=== PATIENT | male | born 1965 | race African-American/Black ===

== ENCOUNTER 2016-10-05 01:58 | Inpatient (IN) | payer OTHER ==
[~2016-10-05] VITALS: Ht 175.3 cm; Wt 93.0 kg
--- NOTE | 2016-10-05 02:00 | NUR ---
TRIAGE: RENU ON POLICE PAPER FOR +SI THOUGH DENIES PLAN, REPORTS USING COCAINE 6-8 HOURS AGO. REPORTS TO RN "DAILY ETOH," REPORTS TO MD "ONLY SOMETIMES." PATIENT DENIES OTHER DRUG USE, -HI. PATIENT VERY CALM AND COOPERATIVE. SECURITY W/ PATIENT FOR WANDING.
--- NOTE | 2016-10-05 02:06 | ED PSYCHIATRIC COMPLAINT ---
History of Present Illness General Chief Complaint: Psychiatric Related Complaint Stated Complaint: BIBA +SI Source: patient, EMS Exam Limitations: no limitations Vital Signs & Intake/Output Vital Signs & Intake/Output Vital Signs Date Time Temp Pulse Resp B/P B/P Pulse O2 O2 Flow FiO2 Mean Ox Delivery Rate 10/10 2149 90 142/90 10/10 1956 96.9 90 142/90 10/10 1602 92 144/84 10/10 1556 92 144/84 10/10 1219 88 148/74 10/10 1214 88 148/74 10/10 0804 91 138/85 10/10 0752 96.7 91 18 138/85 10/10 0740 96.7 94 138/85 Triage Nurses Notes Reviewed? yes HPI: Patient presents with increasing depression with suicidal ideations. Patient states that he has a history of cocaine abuse and cannot take it anymore and just wants to . Patient has no specific plan. Patient reached out for help and 9 old contacted. Patient states that he usually goes to [place] when he feels like this however he feels like they just keep him for a day or 2 and then discharge him back to the street without helping him. Patient denies any homicidal ideations. There are no hallucinations. His last use of cocaine was earlier this evening. (BIGG RAMOS,LYNN Malone) Allergies Coded Allergies: No Known Allergies (10/06/16) Reconcile Medications No Known Home Medications (DEWEY RAMOS,HAILEE) Past History Travel History Traveled to [place] past 21 day No Medical History Any Pertinent Medical History? see below for history Psychiatric: depression Surgical History Surgical History: non-contributory Psychosocial History Tobacco Use: Current Daily Use Daily Tobacco Use Amount/Type: => 5 Cigarettes daily ETOH Use: occasional use Illicit Drug Use: cocaine Family History Hx Contributory? No (BIGG RAMOS,LYNN Malone) Review of Systems Review of Systems Constitutional: Reports: no symptoms. EENTM: Reports: no symptoms. Respiratory: Reports: no symptoms. Cardiovascular: Reports: no symptoms. GI: Reports: no symptoms. Genitourinary: Reports: no symptoms. Musculoskeletal: Reports: no symptoms. Skin: Reports: no symptoms. Neurological/Psychological: Reports: see HPI, depressed. Hematologic/Endocrine: Reports: no symptoms. Immunologic/Allergic: Reports: no symptoms. All Other Systems: Reviewed and Negative (BIGG RAMOS,LYNN Malone) Physical Exam Physical Exam General Appearance: well developed/nourished, mild distress Head: atraumatic Eyes: Bilateral: PERRL, EOMI. Ears, Nose, Throat: normal pharynx, normal ENT inspection, hearing grossly normal Neck: normal inspection, supple Respiratory: normal breath sounds, no respiratory distress, lungs clear Cardiovascular: regular rate/rhythm, normal peripheral pulses Gastrointestinal: soft, non-tender Extremities: normal range of motion Neurological/Psychiatric: no motor/sensory deficits, awake, alert, calm, oriented x 3 Appearance/Memory/Insight: appropriate appearance, appropriate insight Behavoir/Eye Contact/Speech: cooperative, normal speech, good eye contact Thoughts/Hallucinations: normal thought pattern, no apparent hallucination Skin: intact, normal color, warm/dry SAD PERSONS Done? CRISIS CONSULT OBNTAINED (BIGG RAMOS,LYNN Malone) Progress Differential Diagnosis: drug intoxication, drug overdose, drug withdrawal, electrolyte abnormality Plan of Care: Orders Procedure Date/time Status MISSING MEDICATION FORM 10/10 UNK Active Current Medications Sig/Benita Start time Last Medication Dose Stop Time Status Admin Prazosin HCl 5 MG 10/09 AC 10/10 (Minipress 5 MG) 2148 Gabapentin 400 MG 10/08 AC 10/10 (Neurontin) 214 [place] Carbonate 600 MG 10/08 AC 10/10 ([place] Carbonate) 194 [place] Carbonate 300 MG 10/08 0800 AC 10/10 (Dry Run Carbonate) 0804 Divalproex Sodium 1,000 MG 10/07 AC 10/10 (Depakote ER) 194 Olanzapine 2.5 MG Q4P PRN 10/07 1715 AC (Zyprexa 2.5MG) Gabapentin 300 MG Q4H PRN 10/07 1030 AC (Neurontin) Mirtazapine 7.5 MG AT BEDTIME 10/06 2199 AC 10/10 (Remeron) 214 Montelukast Sodium 10 MG AT BEDTIME 10/06 2199 AC 10/10 (Singulair) 214 Multivitamins 1 TAB DAILY 10/06 1829 AC 10/10 (Theragran Vitamins) 0804 Tramadol HCl 50 MG Q6P PRN 10/06 1215 AC 10/10 (Ultram) 215 Nicotine 14 MG DAILY 10/06 1202 AC 10/09 (Nicotine Cq) 0806 Budesonide/ 2 PUF BID 10/06 1000 AC 10/06 Formoterol Fumarate 2144 (SYMBICORT) Folic Acid 1 MG DAILY 10/06 1000 AC 10/10 (Folic Acid) 0804 Tamsulosin HCl 0.4 MG DAILY 10/06 1000 AC 10/10 (Flomax) 0804 Thiamine HCl 100 MG DAILY 10/06 1000 AC 10/10 (Vitamin B1) 0805 Albuterol Sulfate 2 PUF Q4P PRN 10/06 0230 AC (Ventolin) Docusate Sodium 100 MG DAILY NEEDED PRN 10/06 0230 AC 10/10 (Colace) 2149 Senna 187 MG AT BEDTIME NEED.. 10/06 0230 AC (Senokot) Lorazepam 1 MG Q1 NEEDED PRN 10/05 2300 AC (Ativan) Lorazepam 2 MG Q1 NEEDED PRN 10/05 2300 AC (Ativan) Acetaminophen 975 MG Q6P PRN 10/05 1800 AC 10/05 (Tylenol) 1828 7:11 AM PATIENT SIGNED OUT TO ME BY DR PRIDE PENDING CRISIS EVALUATION/DISPO. (HAILEE WILSON MD) Hand-Off Endorsed To: HAILEE WILSON MD Endorsed Time: 0700 Pending: consult (BIGG RAMOS,LYNN Malone) Hand-Off Endorsed To: MIKE RAYMUNDO MD Endorsed Time: 1100 Pending: consult (CRISIS) (HAILEE WILSON MD) Comments: 1400: Patient signed out to me by Dr. Wilson at shift change agent. Patient has been evaluated by the crisis condition and will be admitted to inpatient psychiatry. (MIKE RAYMUNDO MD) Departure Departure Disposition: STILL A PATIENT Condition: Stable Referrals: PATIENT HAS NO PRIMARY CARE DR (PCP/Family) Departure Forms: Customer Survey General Discharge Information (LYNN PRIDE MD) Departure Prescriptions: Current Visit Scripts No Known Home Medications (HAILEE WILSON MD) Departure Clinical Impression Primary Impression: Depression Qualifiers: Depression Type: unspecified Qualified Code: F32.9 - Major depressive disorder, single episode, unspecified Secondary Impressions: Cocaine abuse Psych Admission Note Psychiatric Admission: I have also reviewed all the pertinent lab results and diagnostic results. FRANK PANDA will be admitted to our inpatient Psychiatric unit for treatment and care. (MIKE RAYMUNDO MD D)
[2016-10-05 02:37] LABS: ABSOLUTE BASOPHIL COUNT 0.1 /CUMM (0.0-0.2); ABSOLUTE EOSINOPHIL COUNT 0.4 /CUMM (0.0-0.7); ABSOLUTE GRANULOCYTE CT 4.7 /CUMM (1.4-6.5); ABSOLUTE LYMPH COUNT 2.3 /CUMM (1.2-3.4); ABSOLUTE MONOCYTE COUNT 0.7 /CUMM (0.10-0.60); BASOPHIL % 0.9 % (0.0-2.0); GRANULOCYTE % 57.7 % (42.2-75.2); HEMATOCRIT 44.3 % (42-52); MEAN CORPUSCULAR HGB 31.1 PG (27.0-31.0); MEAN CORPUSCULAR HGB CONC 33.9 G/DL (33.0-37.0); MEAN CORPUSCULAR VOLUME 91.9 FL (80.0-94.0); MEAN PLATELET VOLUME 8.4 FL (7.4-10.4); PLATELET COUNT 297 /CUMM (130-400); RBC DISTRIBUTION WIDTH 13.5 % (11.5-14.5); RED BLOOD CELL CT 4.82 /CUMM (4.70-6.10); WHITE BLOOD CELL COUNT 8.1 /CUMM (4.8-10.8)
--- NOTE | 2016-10-05 02:51 | NUR ---
EKG DONE AND SHOWN TO DR. PRIDE.
--- NOTE | 2016-10-05 06:56 | NUR ---
SLEEPING AT PRESENT
--- NOTE | 2016-10-05 07:33 | NUR ---
SITTING UP, EATING BREAKFAST. SITTER IN ATTENDANCE. PT AWARE OF NEED FOR URINE BEFORE CRISIS WILL SEE HIM. Informed waiting has been performed.
--- NOTE | 2016-10-05 10:05 | NUR ---
PT RESTING ON STRETCHER, SITTER PRESENT.
--- NOTE | 2016-10-05 11:22 | NUR ---
PT EATING LUNCH, SITTER PRESENT.
--- NOTE | 2016-10-05 11:55 | NUR ---
MEDICATED WITH TYLENOL (SEE MAR)
--- NOTE | 2016-10-05 14:02 | NUR ---
CRISIS SPEAKING WITH PT.
--- NOTE | 2016-10-05 14:37 | ED PSYCH CRISIS CONSULTATION ---
Crisis Consult Basic Assessment Date of Consult: 10/05/16 Responsible Person/Accompanied By: PEER Insurance Authorization: Insurance #1: Insurance name: BATSHEVA DEMPSEY Phone number: Policy number: [id number] Group number: Authorization number: ED Provider: Patient's ED Provider: BIGG RAMOS,LYNN Malone Primary Care Physician: Patient's PCP: PATIENT HAS NO PRIMARY CARE DR PCP's Phone Number: Current Psychiatrist: [facility] Chief Complaint: Psychiatric Related Complaint Patient's Quote: "I feel terrible why would you ask" Present Illness: Pt is 50 yo male BIB [facility] for SI statement of wanting to . The neighbor called the police. Per pt he disclosed with this chief of internal medicine he plans on pretending to have a gun so that the police would shoot him , or try to take the police gun from their holster so he can shoot himself. He reports 10/10 for anxiety and depression. Pt denies HI/AVH. He presents as irritable , flat affect and depressed mood. Pt's UTOX was positive for cocaine , he VERNON 1/2 gram yesterday ( daily use). Pt first started using cocaine at age 34. He denies any other drug use. He reports 6 days a week of drinking "liqour". Pt has hx of one suicide attempt at age 16 he overdosed on pills and got his stomach pumped. Pt stated he has hx of IP hospitalizations at [place] and [place]. He says he has hx of Bipolar disorder and is not currently taking any medications. He said he has been seen by Hiren chowdhury at [facility] the past 4 years . Pt says he has hx of multiple arrests and prison time for possession and larceny charges. Pt has hx of trying [facility] 3 x and successfully completed it once. He noted hx of sober time while incarcerated ( last incarceration 1 1/2 years ago )Pt is unemployed, says he is but unclear if they are living together. He said he has 3 biological children and 2 step children that are all adults ( ages 28,26,22,19 and 18). He is seeking voluntary admission to . This typewriter mechanic called Hiren Chowdhury from [facility] for collateral info: Harleen BARRAGAN, Left voicemail. Harleen myers nurse called back noted hx of non compliance and was seen last Decme for pain management and he was supposed to see behavioral health and no showed all the appointments. DX hx of bipolar PCP is Dr. Fleming on [facility] Patient's Address: [address] [place], [place] [address] [address] Other Phone Number: Who Do You Live With? Family Family/Informants Interviewed: Hiren Chowdhury- left voice mail for collateral [phone] Current Medications - No Known Home Medications Laboratory Results: Laboratory Tests 10/05/16 1052: Urine Opiates Screen < 100.00, Methadone Screen < 40, Barbiturate Screen 70, Ur Phencyclidine Scrn < 6.00, Amphetamines Screen < 100, U Benzodiazepines Scrn < 85, Urine Cocaine Screen > 1000 H, Urine Cannabis Screen < 5.00 10/05/16 0226: Anion Gap 12, Estimated GFR > 60, BUN/Creatinine Ratio 15.0, Glucose 84, Calcium 9.8, Total Bilirubin 0.5, AST 22, ALT 32, Alkaline Phosphatase 56, Troponin I < 0.01, Total Protein 7.2, Albumin 4.3, Globulin 2.9, Albumin/Globulin Ratio 1.5, CBC w Diff NO MAN DIFF REQ, RBC 4.82, MCV 91.9, MCH 31.1 H, RDW 13.5, MPV 8.4, Gran % 57.7, Lymphocytes % 28.1, Monocytes % 8.3, Eosinophils % 5.0, Basophils % 0.9, Absolute Granulocytes 4.7, Absolute Lymphocytes 2.3, Absolute Monocytes 0.7 H, Absolute Eosinophils 0.4, Absolute Basophils 0.1, PUBS MCHC 33.9, Serum Alcohol < 10.0 Past History Past Medical History Neurological: NONE EENT: NONE Cardiovascular: NONE Respiratory: NONE Gastrointestinal: NONE Hepatic: NONE Renal: NONE Musculoskeletal: NONE Psychiatric: depression Endocrine: NONE Blood Disorders: NONE Cancer(s): NONE LAB ANIMAL TECHNOLOGIST/Reproductive: NONE Past Surgical History Surgical History: non-contributory Psychosocial History Strengths/Capabilities: pt is seeking treatment Physical Limitations (Interventions): none stated Psychiatric Treatment History Psych Treatment Psychiatric Treatment Yes Inpatient Treatment Yes Outpatient Treatment Yes Location of Treatment [facility] [place] [facility] Reason for Treatment bipolar and SA Dates of Treatment 2012- present Response to Treatment poor Diagnosis by History: bipolar and stimulant do Substance Use/Abuse History Drug Use/Abuse Substances Used/Abused Yes Substance Used/Abused Cocaine First Use 34 yo Last Used early AM How much used/taken 1/2 gram How often daily For how long years Substance Abuse Treatment Substance Abuse Treatment Past Substance Abuse TX Yes Inpatient Treatment Yes Outpatient Treatment Yes Location of Treatment [facility] Reason for Treatment bipolar and SA Dates of Treatment 2013- present Response to Treatment poor Current Mental Status Mental Status Orientation: Person, Place, Situation Affect: Angry, Depressed, Flat, Hopeless, Sad Speech: Soft, WNL Neuro-vegetative: Appetite Decreased, Concentration Poor, Helpless, Loss of Interest, Sleep Disturbance Appearance Appearance- Dress/Hygiene: Pt [facility] in [facility] gown, hygiene fair Behaviors Thought Process: WNL Thought Content: WNL Memory: Impaired Insight: Fair SI/HI Risk Assessment Past Suicidal Ideation/Attempts Yes Current Suicidal Ideation/Att Yes Past Homicidal Ideation/Att: No Current Homicidal Ideation/Attempts No Degree of Intent: Plan Danger To: Self Gravely Disabled: Lack of Insight, Poor Impulse Control, Poor Judgment Risk Factors: high anxiety/distress, history of suicide atmpts, SA/MH hospitalized, substance abuse, isolate/no social support, poor impulse control, lack of outcome concern, male Lethality Ratin PTSD Checklist PTSD Done? pt unable to participate ED Management Sitter: Yes Restraints: No DSM5/PS Stressors/Medical Prob Diagnosis' (DSM 5, Stressors, Medical): F32.9 depression unspecified F31.9 unspecifed bipolar F14.20 cocaine use d/o severe F10.20 alcohol use d/o moderate-severe medical: none stated pscyhosocial: limited social supports, problems with primary relationships, unemployed Current GAF: 25 Departure Disposition Psych Medical Clearance Date: 10/05/16 Medically Cleared at: 1400 Time Started: 1400 Time Ended: 1500 Psychiatrist Consulted: Cici Chew MD Date Disposition Established: 10/05/16 Time Disposition Established: 1500 Plan for Disposition - Modality: Inpatient Psychiatry [facility]: [facility] Contact: [facility] Rationale for Disposition: Pt endorses plan to kill himself by pretending to have a gun on him so the police will shoot him or he will try to pull a police officers gun from their holster so they would shoot him that way. Case reviewed with Dr. Chew and he meets inpatient criteria . He will be admitted to [facility] for mood stabilization and safety. Type of IP Admission: Voluntary Referrals PATIENT HAS NO PRIMARY CARE DR (PCP/Family)
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
--- NOTE | 2016-10-05 16:46 | NUR ---
Case reviewed with Dr. Chew and pt meets criteria for inpatient admission. Pt will be admitted to [facility].
--- NOTE | 2016-10-05 17:09 | NUR ---
C/0 BACK PAIN. REQUESTING TYLENOL.
--- NOTE | 2016-10-05 17:28 | NUR ---
RECEIVE REPORT FROM LAUREL COLUNGA
--- NOTE | 2016-10-05 21:05 | NUR ---
Patient admitted to [facility] from ED. Patient alert and orient to person, place, time and situation. Patient calm and cooperative with some irritability secondary to cocaine use. Patient denies CP, reports back pain 8/10 on a 0-10 scale with 10 being the highest. Patient recent stressors include separation from and increased anxiety and worsening depression. Patient denies HI/AH/VH. Affect flat, contracted for safety while on the unit. Looking forward to assisting Ayrl with mental health.
--- NOTE | 2016-10-05 23:03 | NUR ---
Unknown powder substance found in patient's wallet and sent to pharmacy for destruction.
--- NOTE | 2016-10-05 23:47 | History & Physical ---
General Information and HPI MD Statement: I have seen and personally examined AMARILYSTONYNEYDA and documented this H&P. The patient is a 50 year old M who presented with a patient stated chief complaint of [depression, SI]. Source of Information: patient Exam Limitations: no limitations History of Present Illness: 50 yo M with h/o bipolar disorder, anxiety, depression, BPH, chronic pain, cocaine use d/o is admitted to Inpatient Psychiatry for worsening depression, SI , alcohol and cocaine use disorder. Please refer to Psych H and P for details. He reports struggling with insomnia and constipation. Reports chest discomfort that has resolved. Otherwise 12 point review of systems was negative. 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 Psychosocial History Where do you live? Other (Homeless) Who Do You Live With? self Services at Home: None Primary Language: Turkish Smoking Status: Current Everyday Smoker ETOH Use: heavy use Illicit Drug Use: cocaine Functional Ability ADLs Independent: dressing, eating, toileting, bathing. Ambulation: independent IADLs Independent: telephone, transportation. Employment History Employment Unemployed Review of Systems Review of Systems Constitutional: Denies: chills, fever, weakness. EENTM: Reports: no symptoms. Cardiovascular: Denies: chest pain, orthopena, palpitations, peripheral edema. Respiratory: Denies: cough, short of breath, sputum production. GI: Reports: constipation. Denies: diarrhea, nausea, vomiting. Genitourinary: Reports: no symptoms. Musculoskeletal: Reports: no symptoms. All Other Systems: Reviewed and Negative Exam & Diagnostic Data Last 24 Hrs of Vital Signs/I&O Vital Signs Date Time Temp Pulse Resp B/P B/P Pulse O2 O2 Flow FiO2 Mean Ox Delivery Rate 10/05 1833 98.3 78 20 120/75 98 Room Air 06/06 1632 97.6 70 18 112/70 100 Room Air 10/05 1428 96.7 74 18 114/72 96 Room Air 10/05 1236 95.5 10/05 1155 95.5 10/05 1113 86 18 110/70 96 Room Air 10/05 0841 76 20 116/68 96 Room Air 10/05 0213 95.5 93 20 136/88 96 Room Air Intake & Output 10/05 1600 10/05 0800 06 0000 Intake Total Output Total Balance Patient 205 lb Weight Weight Reported by Patient Measurement Method Physical Exam General Appearance Alert, Oriented X3, Cooperative, No Acute Distress Skin No Rashes, No Breakdown, No Significant Lesion HEENT Atraumatic, EOMI, Mucous Membr. moist/pink Neck Supple Cardiovascular Regular Rate, Normal S1, Normal S2 Lungs Clear to Auscultation, Normal Air Movement Abdomen Normal Bowel Sounds, Soft, No Tenderness Neurological Exam Findings: Normal Gait, Normal Speech, Strength at 5/5 X4 Ext, Cranial Nerves 3-12 NL Cranial Nerves II through XII: Grossly intact Extremities No Edema, Normal Pulses, No Tenderness/Swelling Last 24 Hrs of Labs/Doe: Laboratory Tests 10/05/16 1052: Urine Opiates Screen < 100.00, Methadone Screen < 40, Barbiturate Screen 70, Ur Phencyclidine Scrn < 6.00, Amphetamines Screen < 100, U Benzodiazepines Scrn < 85, Urine Cocaine Screen > 1000 H, Urine Cannabis Screen < 5.00 10/05/16 0226: Anion Gap 12, Estimated GFR > 60, BUN/Creatinine Ratio 15.0, Glucose 84, Calcium 9.8, Total Bilirubin 0.5, AST 22, ALT 32, Alkaline Phosphatase 56, Troponin I < 0.01, Total Protein 7.2, Albumin 4.3, Globulin 2.9, Albumin/Globulin Ratio 1.5, CBC w Diff NO MAN DIFF REQ, RBC 4.82, MCV 91.9, MCH 31.1 H, RDW 13.5, MPV 8.4, Gran % 57.7, Lymphocytes % 28.1, Monocytes % 8.3, Eosinophils % 5.0, Basophils % 0.9, Absolute Granulocytes 4.7, Absolute Lymphocytes 2.3, Absolute Monocytes 0.7 H, Absolute Eosinophils 0.4, Absolute Basophils 0.1, PUBS MCHC 33.9, Serum Alcohol < 10.0 Diagnostic Data EKG Results Sinus rhythm, nonspecific T wave changes. CXR Results -- Assessment/Plan Assessment: 50 yo M with h/o anxiety, bipolar disorder, BPH, chronic pain is admitted to Inpatient Psychiatry for depression, suicidal ideation, alcohol abuse and cocaine abuse disorder. 1. Continue management per Psych team. 2. h/o asthma diagnosed as a child, but denies frequent exacerbations. He is on albuterol as needed and Advair. He reports not taking any of his meds. I have resumed his inhalers and singulair. Smoking cessation counseling done. 3. BPH. Ct. tamsulosin. 4. Constipation. PRN colace and senna. 5. Chronic pain syndrome. Patient reports getting Percocet and oxycontin from [facility] - Dr. Neal. Please call to confirm and plan to resume his meds as per Psych recs. DVT ppx low risk, early ambulation. As Ranked By This Provider Problem List: 1. Cocaine abuse 2. Depression Qualifiers Depression Type: unspecified Qualified Code: F32.9 - Major depressive disorder, single episode, unspecified Miscellaneous Miscellaneous Documentation Attending Case Discussed With: Sharron Salazar MD Primary Care Physician: PATIENT HAS NO PRIMARY CARE DR Patient sees these Specialists -- Level of Patient Care: JANNETH Nuñez Attending Review Statement Attending Statement Attending MD Statement: examined this patient, discuss w/resident/PA/CROSSCUTTER
--- NOTE | 2016-10-05 23:47 | Admission Certification ---
Admission Certification Certification Statement - As attending physician, I certify that at the time of - admission, based on clinical presentation, severity of - symptoms, need for further diagnostic testing and - therapeutic interventions, and risk of adverse outcomes - without in-hospital treatment, in my clinical assessment, - this patient requires an acute hospital stay for a minimum - of two nights or longer. I have also considered psychsocial - factors such as support system, advanced age, financial - issues, cognitive issues, and failed out-patient treatments, - past re-admission history, safety of patient, and lack of - compliance as applicable. Specific rationale supporting this admission is: Depression, suicidal ideation, alcohol and cocaine use disorder.
[2016-10-06 07:48] VITALS: BP 148/81
[2016-10-06 07:59] VITALS: BP 148/81
--- NOTE | 2016-10-06 12:10 | SOCIAL WORKER PROG NOTE PSYCH ---
See Addendum Social Work Progress Note Progress Note Juvenal came to my door and shared that he needed a letter faxed to [place] [address]. I had him sign a release to do so. He said he thinks he may have missed his court date yesterday. Charge is for gayle Bautista. He shared that he has been extremely negative, nothing is going well. Reports feeling depressed, suicidal, angry. He reported that his plan was suicide by pipe fitter soft copper. He stated "I didn't have the heart to do it myself." He reports everything has gone wrong since his relapse on crack cocaine. He is currently homeless. He has been homeless for the past 4 months. He reports living on the [address] and going from [employer] to [employer] if he has any money. He is unemployed and left his job 6-7 months ago. 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 When he started using he just stopped going to work. He reports using crack daily and drinking alcohol (pint daily). He was previously living in [place] with his fiance. He wants to go to rehab and wants to stay here as long as he can to get there. He asked me specifically about the [facility] residential program. He wants a referral to [facility]. I started to tell him about other rehab options, but when I started mentioning [place] and [place], he seemed turned off. I told him he will be at rehab, not wondering around the city. He seems rigid right now in terms of what he is open to doing, so I gave him a list of places and told him to make some calls. When asked if he had any supports in the area, he only identified his 92 year old Grandmother. He occasionally goes to her house for rest and food. She lives in [place]. Faxed a letter to [place] [address] and faxed clinical to [facility].
[2016-10-06 12:21] VITALS: BP 132/77
[2016-10-06 12:30] VITALS: BP 132/77
--- NOTE | 2016-10-06 12:58 | SOCIAL WORKER TX PLAN PSYCH ---
Treatment Plan - Please Document: - Evidence that there is ongoing collaboration between - the patient and the interdisciplinary team, - including the patient's active participation and - responsibility for engaging in the treatment regimen, - and that the treatment plan is individualized and - relevant to the patient's conditions. - Treatment plan should reflect documentation indicating - that all active therapeutic efforts are included. Strengths/Capabilities: pt is seeking treatment Physical Limitations (Interventions): none stated Patient Identified Trmt Goals: "I need to go to rehab" Discharge Plan: Residential Rehab Problem/Goals #1 Problem #1: depression Goal (Short Term): patient will explore medications with the psychiatrist to help stabilize mood. Goal (Security Researcher): patient will no longer have any suicidal thoughts Interventions: patient will be offered medication management with the psychiatrist, groups on symptom management, coping skills, relaxation, self esteem, goals group, accupuncture. Major Donor Coordinator will assist patient with aftercare planning. Assess SI and mood daily. Problem/Goals #2 Problem #2: polysubstance use Goal (Short Term): patient will identify triggers to use Goal (Fdc): patient will identify a relapse prevention plan Interventions: patient will be offered groups on relapse prevention, AA meetings, coping skills. Major Donor Coordinator will assist with getting patient referred to rehab as an aftercare plan. DSM5/PS Stressors/Medical Prob Diagnosis' (DSM 5, Stressors, Medical): F31.9 unspecifed bipolar F32.9 depression unspecified F14.20 cocaine use d/o severe F10.20 alcohol use d/o moderate-severe medical: none stated pscyhosocial: limited social supports, problems with primary relationships, unemployed Current GAF: 25 Treatment Team - Responsibilities of members of the treatment team include: - Medication Management- MD or SCHOOL BUS MECHANIC - Medication Administration and Monitoring- Nurse - Group Therapy- Occupational Therapist - 1:1 Therapy,Disch Planning,family involvement-Major Donor Coordinator
--- NOTE | 2016-10-06 13:13 | NUR ---
PT IS STABLE WITH FULL RANGE OF AFFECT, PRESENT WITHIN THE COMMUNITY AND INTERACTING WITH PEERS/STAFF MEMBERS. PT IS APPROPRIATE, CALM, COMPLIANT. PT HAS BEEN ATTENDING GROUPS ALL AM. PT STATED THAT OFTEN THE FIRST THING HE LOSES WHEN "THINGS LIKE THIS HAPPEN IS THAT MY SPIRITUALITY IS THE FIRST TO GO". PT REPORTED THAT HE IS TRYING TO STAY POSITIVE. VS ARE STABLE AND DENIES ANY SI/HI TO THIS MHW.
[2016-10-06 15:51] VITALS: BP 134/77
[2016-10-06 16:03] VITALS: BP 134/77
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
--- NOTE | 2016-10-06 18:06 | NUR ---
PT IS COOPERATIVE WITH STAFF AND PEERS, AND COMPLIANT WITH UNIT RULES. BOTH IN AND OUT OF MILIEU. APPEARS SLIGHTLY LETHRGIC, SLEEPING FOR PERIODS OF THE EVENING. MOOD IS STABLE, AFFECT IS EUTHYMIC TO FULL RANGE, COMMUNICATION IS ORGANIZED AND APPEARS NORMAL IN ALL RESPECTS, AND APPETITE IS NORMAL. PT DENIES SI AT THIS TIME.
[2016-10-07] VITALS (8 sets, daily range): BP systolic 135–149; BP diastolic 83–99
--- NOTE | 2016-10-07 07:08 | NUR ---
PT SLEPT. PT UP A FEW TIMES "BECAUSE OF FLOMAX".
--- NOTE | 2016-10-07 10:39 | NUR ---
PT IS CALM, COOPERATIVE WITH STAFF AND PEERS, AND COMPLIANT WITH UNIT RULES. BOTH IN AND OUT OF MILIEU. APPEARS SLIGHTYL LETHARGIC, SLEEPING IN PT UNIT AT TIMES. MOOD IS STABLE, AFFECT APPEARS EUTHYMIC TO FULL RANGE, COMMUNICATION IS ORGANIZED AND APPEARS NORMAL IN ALL RESPECTS, AND APPETITE IS NORMAL. PT DENIES SI AT THIS TIME.
--- NOTE | 2016-10-07 15:33 | SOCIAL WORKER PROG NOTE PSYCH ---
Social Work Progress Note Progress Note Pt expressed feeling hopeless, distraught, guilty and sad. Pt reflected on a decision he made in his marriage and the repercussions of his actions, he wants to work things out with his , and mentioned family counseling to discuss infidelity, but is not sure how to go about that. Pt requested I reach out to her, he signed a release. Pt was "discouraged" he could of had a bed at [facility] but he needs a warrant vacated before he can be placed there. Pt states he will follow up and we contacted the public relations sales marketing on his behalf. Pt wants treatment for mental health he states "the guilt is killing me", thats what is driving me to want to kill myself". Spoke with she reported feeling hurt, and devastated. She would like updates on treatment plans, but is not availabel for an official "family meeting ".
--- NOTE | 2016-10-07 17:29 | SOCIAL WORKER PROG NOTE PSYCH ---
Social Work Progress Note Progress Note Referrals were made to [facility] and [facility] today. Returned a call from Carlos De Leon at [facility] and left him a message. Called [facility] today and left a message regarding referral at [facility]. Lug Breaker And Wire Puller at [facility] [address] indicated yesterday that Ju[facility]al would have a warrant for his arrest, due to missing court on Tuesday. He was going to try and get it vacated, but if he couldn't he would need to turn himself in after discharge.
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
--- NOTE | 2016-10-07 21:08 | NUR ---
PT IS VISIBLE ON UNIT, WATCHING TV IN KITCHEN BUT HAS MINIMAL INTERACTION WITH PEERS. ATTENDED AA AND WRAP UP MEETING THIS EVENING. AT TIMES PT HAS AN IRRITABLE, SLIGHTLY ENTITLED EDGE BUT IS OVERALL COOPERATIVE AND COMPLIANT WITH STAFF. NO COMPLAINTS OR SI REPORTED. PT HAS A STABLE MOOD AND CONSTRICTED AFFECT.
[2016-10-08] VITALS (8 sets, daily range): BP systolic 134–148; BP diastolic 73–89
--- NOTE | 2016-10-08 14:21 | NUR ---
PT IS STABLE WITH FULL RANGE OF AFFECT, BRIGHT AND POSITIVE OUTLOOK ON TRYING TO OBTAIN REHAB POST CPS. ATTENGING ALL GROUPS BUT REPORTS FEELING GROGGY DUE TO NEW MEDICATION/WITHDRAWALS. APPROPRIATE TO THE UNIT AND INTERACTS WITH OTHERS PROVIDING POSITIVE FEEDBACK. VS ARE STABLE. PT WAS ENDORSING PASSIVE SI EARLIER IN REGARDS TO BEING DC PREMATURELY WITHOUT A REHAB SET UP BUT CONTRACTED FOR SAFETY.
--- NOTE | 2016-10-08 14:46 | SOCIAL WORKER PROG NOTE PSYCH ---
Social Work Progress Note Progress Note Spoke with Mayela at [facility]. She informed me that they are denying Suellen at this time, due to his mood and SI. They won't consider anyone with SI in the last 7 months. They recommend a dual diagnosis program. Suellen, Dr. Mckeon and I met together today. Suellen shared that he was feeling down today. Mood looked more sad and irritable. He made eye contact and smiled occasionally. He continues to have a recurrent nightmare. Dr. Mckeon plans to increase minipress tonight. He is hoping the [place] will help with his impulsivity, SI, and mood. Asked about referrals to other programs? He was aware that [facility] refused [facility]. He asked for a referral to [facility]. I told him they may want to see him do a 30 day program first, but we could try. He is waiting to hear from court today to see if his warrant is vacated. He may have a chance to get into [facility] if the arrest warrant is gone. Talked about setting up meeting or conference call with his . He hasn't seen her, but is expecting her to drop off clothes for him tomorrow. I received a call from Yoselyn social work program coordinator at [address]. [facility] arrest warrant was vacated. His next court date is 11/19 10am.
--- NOTE | 2016-10-08 18:18 | NUR ---
PT IS COOPERATIVE WITH STAFF AND PEERS, AND COMPLIANT WITH UNIT RULES. BOTH IN AND OUT OF MILIEU, INTERACTING WITH OTHERS TO AN EXTENT. SLIGHTLY IRRITABLE AT TIMES. APPEARS LETHARGIC, SLEEPING IN PT ROOM AT TIMES. MOOD IS STABLE, AFFECT APPEARS EUTHYMIC TO FULL RANGE, COMMUNICATION IS ORGANIZED AND APPEARS NORMAL IN ALL RESPECTS, AND APPETITE IS NORMAL. PT DENIES SI AT THIS TIME.
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
[2016-10-09] VITALS (7 sets, daily range): BP systolic 117–146; BP diastolic 73–89
--- NOTE | 2016-10-09 09:45 | CP SOUTH PROGRESS NOTE PSYCH ---
Psych (Inpt) Progress Note Progress Note Include the following elements, when applicable: Involvement in the active treatment of the patient with behavioral observations of the patient and the patient's response to the treatment. Review of the ongoing treatment process in the context of the treatment plan. Indication of how multi-disciplinary staff members are carrying out the treatment plan. Plans for future interventions and recommendations for revision of the treatment plan. Liaison with other physicians/providers. Progress Note: I discussed this patient's progress to date, current mental status, treatment process in the context of the treatment plan, and discharge planning with staff/ team in the daily morning inpatient team meeting. I also met with the patient myself in individual session. pt reports feeling better, ok, except for the nightmares. He sasy "it is like a movie". Otherwise he is feeling better. He agrees to increase prazosin to 5mg at bedtime. Laboratory Tests 10/09/1624: HIV 1&2 Ab Western Blot Pending Vital Signs Date Time Temp Pulse Resp B/P B/P Pulse O2 O2 Flow FiO2 Mean Ox Delivery Rate 10/09 0806 96.0 92 16 136/75 10/09 0744 92 136/75 10/09 0743 96.0 92 136/75 10/08 2252 98.3 89 16 147/89 10/08 2008 98.3 89 16 147/89 10/09 2003 98.3 83 147/89 10/08 1622 98 148/78 10/08 1615 98 148/78 10/08 1224 87 144/85 10/08 1221 87 144/85 Pt is alert, oriented, cooperative. Voice ius normal in tone and volume. Mood is described as better, affect is more reactive. His only complint is having nightmares. No si/hi, no hallucianitons. IJ improving A/P Pt is imrpovng. COntinue with current meds. Current Medications Sig/Benita Start time Last Medication Dose Route Stop Time Status Admin Acetaminophen 975 MG Q6P PRN 10/05 1800 AC 10/05 PO 1828 Albuterol Sulfate 2 PUF Q4P PRN 10/06 0230 AC INH Budesonide/ 2 PUF BID 10/06 1000 AC 10/06 Formoterol Fumarate INH 2144 Divalproex Sodium 1,000 MG 10/07 AC 10/08 PO 2036 Docusate Sodium 100 MG .STK-MED ONE 10/08 2033 DC PO 10/08 2034 Docusate Sodium 100 MG .STK-MED ONE 10/08 2032 DC PO 10/08 2033 Docusate Sodium 100 MG DAILY NEEDED PRN 10/06 0230 AC 10/08 PO 203 Folic Acid 1 MG DAILY 10/06 1000 AC 10/09 PO 0806 Gabapentin 400 MG 22010/08 2200 AC 10/08 PO 2252 Gabapentin 300 MG 10/07 2200 DC 10/07 PO 2135 Gabapentin 300 MG Q4H PRN 10/07 1030 AC PO [place] Carbonate 600 MG 2000 10/09 1999 AC 10/08 PO 203 [place] Carbonate 300 MG 10/08 08 AC 10/09 PO 0806 Lorazepam 1 MG Q1 NEEDED PRN 10/05 2300 AC PO Lorazepam 2 MG Q1 NEEDED PRN 10/05 2300 AC PO Mirtazapine 7.5 MG AT BEDTIME 10/06 220 AC 10/08 PO 2251 Montelukast Sodium 10 MG AT BEDTIME 10/06 2200 AC 10/08 PO 2251 Multivitamins 1 TAB DAILY 10/06 1829 AC 10/09 PO 0806 Nicotine 14 MG DAILY 10/06 1202 AC 10/09 TOP 0806 Olanzapine 2.5 MG Q4P PRN 10/07 1715 AC PO Prazosin HCl 5 MG 10/09 2200 UNVr PO Prazosin HCl 4 MG 10/08 2200 DC 10/08 PO 2252 Prazosin HCl 3 MG 10/07 2200 DC 10/07 PO 2135 Senna 187 MG AT BEDTIME NEED.. 10/06 0230 AC PO Tamsulosin HCl 0.4 MG DAILY 10/06 1000 AC 10/09 PO 0806 Thiamine HCl 100 MG DAILY 10/06 1000 AC 10/09 PO 0806 Tramadol HCl 50 MG Q6P PRN 10/06 1215 AC 10/09 PO 0809 Tuberculin PPD 0.1 ML ONCE ONE 10/08 1430 DC 10/08 ID 10/08 1431 1855
--- NOTE | 2016-10-09 14:04 | NUR ---
ISOLATIVE IN ROOM. MOOD IS STABLE, SUBDUED AFFECT. DENIED THOUGHTS OF SELF HARM WHEN ASKED.
--- NOTE | 2016-10-09 21:30 | NUR ---
PT HAS BEEN OUT IN THE COMMUNITY AND SOCIAL WITH PEERS AND STAFF. BUT CAN APPEAR LETHARGIC AND CONSTRICTED AND WITHDRAWN. HE HAS EXPRESS AN IRRITATION WITH HIS AND FAMILY.
[2016-10-10] VITALS (8 sets, daily range): BP systolic 138–148; BP diastolic 74–90
--- NOTE | 2016-10-10 06:05 | NUR ---
PT UP X 1 C BAD DREAMS.
--- NOTE | 2016-10-10 09:27 | CP SOUTH PROGRESS NOTE PSYCH ---
Psych (Inpt) Progress Note Progress Note Include the following elements, when applicable: Involvement in the active treatment of the patient with behavioral observations of the patient and the patient's response to the treatment. Review of the ongoing treatment process in the context of the treatment plan. Indication of how multi-disciplinary staff members are carrying out the treatment plan. Plans for future interventions and recommendations for revision of the treatment plan. Liaison with other physicians/providers. Progress Note: I discussed this patient's progress to date, current mental status, treatment process in the context of the treatment plan, and discharge planning with staff/ team in the daily morning inpatient team meeting. I also met with the patient myself in individual session. Patient reports feeling okay. His only complaint is having nightmares. He describes his nightmares very vivid and real. He says he will wakes up due to them. He denies any suicidal or homicidal ideation. He is motivated for sobriety. Vital Signs Date Time Temp Pulse Resp B/P B/P Pulse O2 O2 Flow FiO2 Mean Ox Delivery Rate 10/10 0804 91 138/85 10/10 0752 96.7 91 18 138/85 10/10 0740 96.7 94 138/85 10/09 2133 97.7 92 16 145/84 10/09 2040 97.7 92 145/84 10/09 1541 96 146/89 10/09 1532 96 146/89 10/09 1221 95 117/73 10/09 1211 95 117/73 Patient is alert, oriented, cooperative with the interview. Calm. Mood described as feeling okay affect appropriate and reactive. Thought process organized. He is denying any suicidal or homicidal ideation. No overt delusions. No hallucinations. Insight and judgment fair. Improving. A/P Patient is improving. He is motivated for sobriety. Continue with current medications Current Medications Sig/Benita Start time Last Medication Dose Route Stop Time Status Admin Acetaminophen 975 MG Q6P PRN 10/05 1800 AC 10/05 PO 1828 Albuterol Sulfate 2 PUF Q4P PRN 10/06 0230 AC INH Budesonide/ 2 PUF BID 10/06 1000 AC 10/06 Formoterol Fumarate INH 2144 Divalproex Sodium 1,000 MG 10/07 AC 10/09 PO 2026 Docusate Sodium 100 MG DAILY NEEDED PRN 10/06 0230 AC 10/09 PO 2134 Folic Acid 1 MG DAILY 10/06 1000 AC 10/10 PO 0804 Gabapentin 400 MG 10/08 220 AC 10/09 PO 2133 Gabapentin 300 MG Q4H PRN 10/07 1030 AC PO [place] Carbonate 600 MG 10/08 AC 10/09 PO 202 [place] Carbonate 300 MG 10/08 08 AC 10/10 PO 0804 Lorazepam 1 MG Q1 NEEDED PRN 10/05 2300 AC PO Lorazepam 2 MG Q1 NEEDED PRN 10/05 2300 AC PO Mirtazapine 7.5 MG AT BEDTIME 10/06 2199 AC 10/09 PO 2133 Montelukast Sodium 10 MG AT BEDTIME 10/06 220 AC 10/09 PO 2134 Multivitamins 1 TAB DAILY 10/06 1829 AC 10/10 PO 0804 Nicotine 14 MG DAILY 10/06 1202 AC 10/09 TOP 0806 Olanzapine 2.5 MG Q4P PRN 10/07 1715 AC PO Prazosin HCl 5 MG 10/09 AC 10/09 PO 2133 Prazosin HCl 4 MG 10/08 2200 DC 10/08 PO 2252 Senna 187 MG AT BEDTIME NEED.. 10/06 0230 AC PO Tamsulosin HCl 0.4 MG DAILY 10/06 1000 AC 10/10 PO 0804 Thiamine HCl 100 MG DAILY 10/06 1000 AC 10/10 PO 0805 Tramadol HCl 50 MG Q6P PRN 10/06 1215 AC 10/09 PO 0809 Continue to provide support and encouragement
--- NOTE | 2016-10-10 12:55 | NUR ---
PT IN HIS ROOM MOST OF THE DAY. HE HAS NOT BEEN TO ANY GROUPS TODAY, AND HIS INTERACTIONS ARE MINIMAL WITH BOTH PEERS AND STAFF. PT SHARED THAT HE WAS TIRED BECAUSE OF THE MEDICATION WHEN THIS MHW APPROPACHED HIM ABOUT NOT BEING SEEN MUCH IN THE [place] THESE PAST FEW DAYS. PT IS GUARDED AT TIMES, BUT HAS BEEN COOPERATIVE WITH STAFF DIRECTION. HE DENIES THOUGHTS TO HURT HIMSELF WHEN ASKED.
--- NOTE | 2016-10-10 20:35 | NUR ---
PT HAS BEEN IN THE KITCHEN AND ULTILIZES DISTRACTION A COPING SKILL. HE HAS BEEN COMPLIANT AND HAS NOT REPORTED ANY CHANGES OF MOOD.
[2016-10-11] VITALS (8 sets, daily range): BP systolic 126–173; BP diastolic 64–84
--- NOTE | 2016-10-11 04:59 | NUR ---
SLEPT WELL OVERNIGHT, NO COMPLAINTS OFFERED.
[2016-10-11 06:31] LABS: LITHIUM 0.4 mmol/L (0.6-1.2)
--- NOTE | 2016-10-11 09:10 | SOCIAL WORKER PROG NOTE PSYCH ---
Social Work Progress Note Progress Note Juvenal was speaking with Andrews De Leon this morning from [facility]. Suellen requested that I fax over his PPD results and physical. I called Andrews and confirmed that he was taking Aryl into their program. Andrews would like Suellen to come tomorrow. I told him I would discuss that with the team and get back to him. Faxed over requested paperwork. I also faxed the application that Suellen completed for [facility]. Discussed patient in team. Team is in agreement to discharge tomorrow. Called Carlos De Leon at [facility] and confirmed. Carlos would like him there as early as possible. I told him I will be scheduling [facility] for transportation, so it will depend on their availability. Juvenal spent time trying to contact [address]. He thought he had a court date today. Turns out it was Tuesday. Scheduled [facility], which was approved for tomorrow. superior court justice will be around 10am.
--- NOTE | 2016-10-11 13:11 | CP SOUTH PROGRESS NOTE PSYCH ---
Psych (Inpt) Progress Note Progress Note Include the following elements, when applicable: Involvement in the active treatment of the patient with behavioral observations of the patient and the patient's response to the treatment. Review of the ongoing treatment process in the context of the treatment plan. Indication of how multi-disciplinary staff members are carrying out the treatment plan. Plans for future interventions and recommendations for revision of the treatment plan. Liaison with other physicians/providers. Progress Note: PSYCHIATRIST NOTE, 10/11/2016: I discussed this patient's progress to date, current mental status, treatment and discharge planning with staff team today in the daily morning ITTM and also met with him again myself in individual session. Patient continued to have nightmares over the weekend; dose of prazosin had been increased by me from 3mg to 4mg HS and further to 5mg/night be weekend covering psychiatrist; patient notes absence of nightmares last night and is very pleased with this. Serum valproic acid level this morning was only 53.8mcg/ml after increase in presenting dose from 750mg to 1,000mg daily; after further discussion and description of possible R/B/SE of Depakote ER in higher (but therapeutic) dose range patient agreed to increase in dose to total of 1,500mg daily today; though serum [place] level today was only 0.4mEq/L, patient has not been at the higher, 900mg/day dose for more than a couple of days; I would recommend repeating Li+ level in 1-2 weeks before considering further upward dose titration; the last thing I want to do is to put this patient off a potentially very helpful mood stabilizer because of development of limiting side effects. Patient has not required any PRN doses of Zyprexa since admission. Today, patient seems a little restless but not too irritable, generally positive and upbeat in presentation but not overly/unrealistically so. He does not expect any short term improvement in relationship with partner but said he is "willing to wait and work on myself [in terms of mood disorder and substance abuse]." Patient has been accepted for admission to the [facility] for tomorrow, and should be sufficiently stable to be discharged there then. There is also an application into [facility] today; patient might be able to go there after he spend some time at [facility]. I will continue current dose of prazosin, 5mg HS, along with Remeron, 7.5mg HS.
--- NOTE | 2016-10-11 14:14 | NUR ---
going to groups interacts with peers and staff. mood is stable, full range of affect. denies thoughts of self harm when asked.
--- NOTE | 2016-10-11 17:57 | NUR ---
PT IS CLAM, COOPERATIVE WITH STAFF AN DPEERS, AND COMPLIANT WITH UNIT RULES. PT IS OFTEN IN [place], INTERACTIGN WELL WITH OTJERS. CAN BE SLIGHTLY WITHDRAWN AT TIMES, AND SEEMS SLIGHTLY IRRITBALE. MOOD IS TSBALE, AFFECT IS EUTHYMIC TO FULL RANGE, COMMUNICATION IS ORGANIZED AND APPEARS NORMAL IN ALL RESPECTS, AND APPETITE IS NORMAL. PT DENIES SI AT THIS TIME.
--- NOTE | 2016-10-12 03:38 | NUR ---
SLEPT WELL OVERNIGHT WITH NO COMPLAINTS OFFERED.
[2016-10-12 07:51] VITALS: BP 144/79
[2016-10-12 07:54] VITALS: BP 144/79
[2016-10-12 08:04] VITALS: BP 144/79
--- NOTE | 2016-10-12 08:58 | NUR ---
PT IS DISCHARGED TODAY TO [facility] AWAITING A BED AT [facility]. HE REPORTS AND DEMONSTRATES IMPROVEMENT IN HIS MOOD AND ABILITY TO FUNCTION. HE DENIES ANY THOUGHTS OF SUICIDE OR SELF HARM. HE VERBALIZES A GOOD UNDERSTANDING OF HIS MED REGIME AND TREATMENT PLAN. PT IS GIVEN EDUCATION ON MANAGING HIS MOOD DISORDER AND ON PREVENTING SUICIDE
[2016-10-12] MEDS ORDERED: REMERON15 M2 PO (09:59)
[2016-10-12] MEDS ORDERED: LITHIUM CARBON300 M4 PO (09:59)
[2016-10-12] MEDS ORDERED: DIVALPROEX SOD500 M2 PO (09:59)
[2016-10-12] MEDS ORDERED: VENTOLIN HFA18 GM INH (10:26)
[2016-10-12] MEDS ORDERED: NICOTINE PATCH1 EAC2 TOP (10:26)
[2016-10-12] MEDS ORDERED: PRAZOSIN HCL5 M1 PO (10:26)
[2016-10-12] MEDS ORDERED: FLOMAX0.4 M1 PO (10:26)
[2016-10-12] MEDS ORDERED: GABAPENTIN400 M2 PO (10:26)
[2016-10-12] MEDS ORDERED: SYMBICORT 80-10.2 GM INH (10:26)
--- NOTE | 2016-10-12 11:02 | SOCIAL WORKER PROG NOTE PSYCH ---
Social Work Progress Note Progress Note Called [facility] and left 2 messages asking about the plan for Juvenal's medications. As of 11am there is no return call. Juvenal asked for a [facility] curtis assistance application. This was printed out and handed to him. [facility] is coming after 10am today. Juvenal is getting a little anxious about getting to the program. [facility] wanted him there earlier in the day. At 11:30 [facility] still was not here and when I called stated they would not be here for another 1/2 hour. At that point Juvenal stated that he was going to get a ride from a friend. I called and cancelled the ride for him. Faxed W10 to [facility].
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
== END 2016-10-12 11:57 | DRG 753 ==
LOC: ERH 01:58 → CP SOUTH 16:43 → ERHI 16:43 → ENTRNSPT 18:31 → CP SOUTH 18:37 → DELTRNSPT 19:02 → CP SOUTH 10-06 10:37
PROVIDERS: Emergency Medicine; Psychiatry & Neurology Psychiatry; ADMIT Psychiatry & Neurology Addiction Medicine
DX: F31.9 Bipolar disorder, unspecified (principal); R45.851 Suicidal ideations; F14.90 Cocaine use, unspecified, uncomplicated; Z72.89 Other problems related to lifestyle
CPT/HCPCS: 36415; 80307; 87389; 93005; 93010; G0480; J3490